=== PATIENT | male | born 1965 | race Caucasian/White ===

== ENCOUNTER → 2022-10-13 13:10 | Outpatient (CLI) | payer OTHER, SELFPAY ==
--- NOTE | ~2022-10-13 | XR_ITS ---
XR knee RT 3V 10/13/2022 13:20 Indication: Right knee pain Procedure: 3 views right knee Comparison: No prior studies for comparison. Findings: Mild tricompartment osteoarthritis. Small joint effusion. No fracture, subluxation or dislo cation. No foreign bodies. Impression: 1: Mild osteoarthritis of the right knee. 2: Small joint effusion. Reviewed, dictated and finalized at location A. 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 2: Small joint effusion.
== END ==
PROVIDERS: PCP Internal Medicine; Visit Provider Nurse Practitioner
DX: M17.11 Unilateral primary osteoarthritis, right knee (principal); M25.461 Effusion, right knee
CPT/HCPCS: 73562

== ENCOUNTER 2025-01-28 10:59 | Outpatient (CLI) | payer BC, SELFPAY ==
--- NOTE | ~2025-01-28 | XR_ITS ---
Right Knee Technique: AP, lateral, and sunrise views were obtained. Clinical History: Pain COMPARISON: 10/13/2022 Findings: No fracture or dislocation is seen. Probable mild medial compartment narrowing with minimal tricompartmental osteophyte formation.. Small joint effusion is seen. Impression: Degenerative changes, as above. Small joint effusion. Reviewed, dictated and finalized at location . Impression: Degenerative changes, as above. Small joint effusion.
== END 2025-01-28 11:00 | disposition home or self-care (01) ==
LOC: GOSHIMG 11:01
PROVIDERS: PCP Clinical Nurse Specialist; Visit Provider Clinical Nurse Specialist
DX: M17.11 Unilateral primary osteoarthritis, right knee (principal)
CPT/HCPCS: 73562